=== PATIENT | male | born 1985 | race African-American/Black ===

== ENCOUNTER 2023-12-05 05:45 | Emergency (ER) | payer SELFPAY ==
[~2023-12-05] VITALS: Ht 180.3 cm; Wt 95.0 kg
[2023-12-05 05:48] VITALS: BP 127/93; PULSE 98; RESP 18; TEMP 98.2; O2SAT 99
== END 2023-12-05 06:25 | disposition left against medical advice (07) ==
LOC: ER 05:45
DX: R60.9 Edema, unspecified (principal); I50.9 Heart failure, unspecified; E11.9 Type 2 diabetes mellitus without complications
CPT/HCPCS: 99283

== ENCOUNTER 2024-07-27 11:23 | Emergency (ER) | payer SELFPAY ==
[~2024-07-27] VITALS: Ht 180.3 cm; Wt 127.0 kg
[2024-07-27 11:25] VITALS: TEMP 36.7; O2SAT 97
[2024-07-27 11:45] VITALS: BP 132/89; PULSE 110; RESP 24; O2SAT 97
== END 2024-07-27 12:25 | disposition left against medical advice (07) ==
LOC: ER 11:33
DX: R07.89 Other chest pain (principal); R06.02 Shortness of breath; E11.9 Type 2 diabetes mellitus without complications; I11.0 Hypertensive heart disease with heart failure; I50.9 Heart failure, unspecified; Z88.5 Allergy status to narcotic agent; Z88.6 Allergy status to analgesic agent
CPT/HCPCS: 93005; 99283

== ENCOUNTER 2024-07-28 02:44 | Emergency (ER) | payer SELFPAY ==
[~2024-07-28] VITALS: Ht 180.3 cm; Wt 96.0 kg
[2024-07-28 02:46] VITALS: O2SAT 97
[2024-07-28] MEDS: ASPIRIN 325MG EC TABLET PO ONE (03:29)
[2024-07-28] MEDS: NITROGLYCERIN 0.4MG TABLET SL SL NR (03:31)
[2024-07-28 03:40] LABS: BASOPHILS % 1.3 % (0.0-2.0); DIFFERENTIAL COMMENT 0; EOSINOPHILS % 1.5 % (0.0-5.0); LYMPHOCYTES % 27.7 % (20.0-50.0); MEAN CORPUSCULAR HGB CONC 32.6 g/dL (31.0-37.0); MEAN CORPUSCULAR VOLUME 92.1 fL (80.0-94.0); MEAN PLATELET VOLUME 9.8 fl (7.4-10.4); MONOCYTES % 13.1 % (2.0-8.0); NEUTROPHILS % 56.4 % (40.0-76.0); PLATELET 237 x1000/uL (130-400); RED BLOOD CELL COUNT 4.67 mill/uL (4.7-6.1); RED CELL DISTRIBUTION WIDTH 16.8 % (11.6-14.6)
[2024-07-28 03:43] VITALS: BP 104/50; PULSE 69; RESP 17; TEMP 36.9; O2SAT 100
[2024-07-28 03:50] LABS: CARBON DIOXIDE 25 mEq/L (21-32); CHLORIDE 102 mEq/L (98-107); POTASSIUM 3.8 mEq/L (3.5-5.1); SODIUM 137 mEq/L (136-145)
[2024-07-28 03:51] LABS: CALCIUM 9.1 mg/dL (8.7-10.4); D-DIMER 0.6 mg/L FEU (<0.50); INR 1.1; PARTIAL THROMBOPLASTIN TIME 26.2 sec (23.4-31.0); PROTHROMBIN TIME 11.9 sec (9.6-11.0)
[2024-07-28 03:55] LABS: CREATININE 1.2 mg/dL (0.6-1.3)
[2024-07-28 03:56] LABS: GLUCOSE 119 mg/dL (70-105); UREA NITROGEN BLOOD 20 mg/dL (9-23)
[2024-07-28] MEDS ORDERED: FUROSEMIDE 40MG/4ML VIAL IVP NR (04:15)
[2024-07-28 04:28] LABS: TROPONIN I HIGH SENSITIVITY 194 ng/L (3.0-53)
[2024-07-28 04:29] LABS: ETHANOL BLOOD < 10 mg/dL (<10)
[2024-07-28] MEDS ORDERED: ENOXAPARIN 100MG/ML SYR SUBCUT NR (04:30)
== END 2024-07-28 05:01 | disposition left against medical advice (07) ==
LOC: ER 02:44 → EDBEDREQ 04:52 → EDBEDREQTM 04:52 → ER 05:01
DX: R07.89 Other chest pain (principal); I21.4 Non-ST elevation (NSTEMI) myocardial infarction; F15.10 Other stimulant abuse, uncomplicated; I50.9 Heart failure, unspecified
CPT/HCPCS: 80048; 80320; 83880; 83690; 85025; 85379; 85610; 85730; 84484; 36415; 71045; 93005; 99285; Z7610 ×5; A4606; G0480